=== PATIENT | male | born 1985 | race Caucasian/White ===

== ENCOUNTER 2019-07-29 12:13 | Emergency (ER) | payer OTHER ==
[~2019-07-29] VITALS: Ht 177.8 cm; Wt 87.1 kg
[2019-07-29 12:32] VITALS: BP 130/83
--- NOTE | 2019-07-29 12:35 | NUR ---
PT TO WAIT IN ER LOBBY. WILL CONTINUE TO MONITOR. [id number].
--- NOTE | 2019-07-29 13:05 | NUR ---
PT TO BED 2 WITH STEADY GAIT
--- NOTE | 2019-07-29 13:28 | NUR ---
LAB AT BEDSIDE
--- NOTE | 2019-07-29 13:28 | NUR ---
33/M BIB C/O MID ABDOMINAL PAIN AND N/V/D X TUESDAY. RECENTLY VISITED [facility]- RETURNED ON TUESDAY. PAIN 04/30. TOOK TYLENOL LAST DOSE 0.ABD SOFT. PATIENT POSITIONED FOR COMFORT; HOB ELEVATED; BEDRAILS UP X1; BED DOWN. ER MD MADE AWARE OF PT STATUS.
--- NOTE | 2019-07-29 13:31 | NUR ---
Patient being evaluated by DR PEREZ at bedside.
[2019-07-29 13:37] LABS: BASOPHILS % (AUTO) 0.1 % (0.0-2.0); HEMATOCRIT 44.7 % (36-52); HEMOGLOBIN 15.3 g/dL (12.0-18.0); LYMPHOCYTES # (AUTO) 1.1 K/uL (2.0-11.5); LYMPHOCYTES % (AUTO) 18.4 % (20.5-51.1); MEAN CORPUSCULAR HEMOGLOBIN 30 pg (27-31); MEAN CORPUSCULAR HGB CONC 34 g/dL (33-37); MEAN CORPUSCULAR VOLUME 88.5 fL (80-94); MONOCYTES # (AUTO) 0.4 K/uL (0.8-1.0); MONOCYTES % (AUTO) 7.2 % (1.7-9.3); NEUTROPHILS # (AUTO) 4.6 K/uL (1.8-7.7); NEUTROPHILS % (AUTO) 74.3 % (42.2-75.2); PLATELET COUNT (AUTO) 222 K/uL (140-450); RED BLOOD CELL COUNT(AUTO) 5.05 MIL/uL (4.20-6.10); RED CELL DISTRIBUTION WIDTH 12.9 % (11.6-13.7); WHITE BLOOD COUNT (AUTO) 6.1 K/uL (4.8-10.8)
[2019-07-29] MEDS ORDERED: DICYCLOMINE 20 MG/2 ML VIAL IM ONE (13:45)
[2019-07-29 14:09] LABS: CARBON DIOXIDE 28.4 mmol/L (21-32); CREATININE 0.9 mg/dL (0.7-1.3); POTASSIUM 4.4 mmol/L (3.5-5.1); TOTAL BILIRUBIN 1.8 mg/dL (0.0-1.0)
[2019-07-29 15:18] VITALS: BP 125/78
--- NOTE | 2019-07-29 15:18 | NUR ---
Patient discharged with v/s stable. Written and verbal after care instructions given and explained. Patient alert, oriented and verbalized understanding of instructions. Ambulatory with steady gait. All questions addressed prior to discharge. ID band removed. Patient advised to follow up with PMD. Rx of BENTYL & ZOFRAN given. Patient educated on indication of medication including possible reaction and side effects. Opportunity to ask questions provided and answered.
== END 2019-07-29 15:18 | disposition home or self-care (01) ==
LOC: MED 12:13
DX: R10.9 Unspecified abdominal pain (principal); R19.7 Diarrhea, unspecified; Z88.8 Allergy status to other drugs, medicaments and biological substances
CPT/HCPCS: 36415; 80053; 83690; 85025; 96372; 99283; J0500